=== PATIENT | male | born 1975 | race Caucasian/White ===

== ENCOUNTER 2025-03-05 01:12 | Day surgery (SDC) | payer OTHER, SELFPAY ==
[2025-02-10 14:04] VITALS: BMI 47.3
[2025-03-05 09:44] VITALS: BP 165/110; PULSE 75; RESP 18; TEMP 36.3; O2SAT 95
[2025-03-05] MEDS: LACTATED RINGERS 1,000 ML 150 ML IV CONT (09:52)
--- NOTE | 2025-03-05 10:03 | P.PNAN_ITS ---
Anes - Initial Pre Proc Eval Procedure: Operation Date: 03/05/25 11:00 Proposed Procedures p Screening Colonoscopy - Maximo Carter MD Date/Time: 03/05/25 10:03 Surgeon: Maximo Carter MD Pre Op Diagnosis: positive cologuard/screening Patient Data Age: 49 Gender: M Height: 1.78 m Weight: 156.4 kg Last Vital Signs Temp 97.3 F L 03/05/25 09:44 Pulse 75 03/05/25 09:44 Resp 18 03/05/25 09:44 BP 165/110 H 03/05/25 09:44 Pulse Ox 95 03/05/25 09:44 O2 Del Method Room Air 03/05/25 09:44 Allergies Allergy/AdvReac Type Severity Reaction Status Date / Time No Known Allergies Allergy Verified 03/05/25 09:41 Home Medications ?Medication ?Instructions ?Recorded ?Confirmed ?Type amlodipine 10 mg tablet 10 mg PO DAILY 02/10/2501/24 History irbesartan 300 1 tablet PO DAILY 02/10/25 1 04/12/24 History mg-hydrochlorothiazide 12.5 mg tablet Patient hx anesthesia problems: none Family hx anesthesia problems: none Results Review: All pre-operative results and documents have been reviewed as part of the pre- operative evaluation. [facility] Family History Family History (System 01/06/21 @ 11:29 by Aubrey Hernandez) Other Diabetes mellitus Family history of arthritis Family history of malignant neoplasm Hypertension Social History Social History (System 01/06/21 @ 11:29 by Aubrey Hernandez) Smoking status: Never smoker Alcohol intake: current Alcohol use details: weekends Substance use: never Substance use type: does not use Living arrangements: with family Spiritual care concerns: No Anes - Eval Final PreProcedure Day of Procedure 03/05/25 10:03 Patient weight: super morbidly obese Heart: regular rate and rhythm Lungs: clear to auscultation Airway: Mallampati scale class II Neurological: alert and oriented Last oral intake: >/= 8 hours ASA classification: III Emergent: no Anesthetic plan: proceed Anesthesia type and monitoring: general GIVS and standard monitoring Results Review: All pre-operative results and documents have been reviewed as part of the pre- operative evaluation. Informed Consent: The patient's anesthetic plan and its attendant risks and benefits were discussed with the patient/family/POA. Questions were solicited and answers provided to the satisfaction of the patient/family/POA.
--- NOTE | 2025-03-05 10:09 | PM.HPGS ---
History of Present Illness History of Present Illness Consent: Risks, benefits, and alternatives have been discussed and questions answered. Patient agrees to proceed with procedure. Chief complaint: positive cologuard/screening Narrative: Harinder Bartlett II is a 49 year old male here for first colonoscopy, + cologuard Review of Systems Review of Systems: All systems reviewed & are unremarkable except as noted in HPI and below PMFSH Past Medical History Medical History (Updated 03/05/25 @ 10:09 by Maximo Carter MD) Positive colorectal cancer screening using Cologuard test Family History Family History (System 01/06/21 @ 11:29 by Aubrey Hernandez) Other Diabetes mellitus Family history of arthritis Family history of malignant neoplasm Hypertension Social History Social History (System 01/06/21 @ 11:29 by Aubrey Hernandez) Smoking status: Never smoker Alcohol intake: current Alcohol use details: weekends Substance use: never Substance use type: does not use Living arrangements: with family Spiritual care concerns: No Meds Home Medications and Allergies Home Medications ?Medication ?Instructions ?Recorded ?Confirmed ?Type amlodipine 10 mg tablet 10 mg PO DAILY 02/10/25 02/10/25 History irbesartan 300 1 tablet PO DAILY 02/10/25 02/10/25 History mg-hydrochlorothiazide 12.5 mg tablet Allergies Allergy/AdvReac Type Severity Reaction Status Date / Time No Known Allergies Allergy Verified 03/05/25 09:41 Vital Signs Vital Signs - 24 hr 03/05/25 09:44 Temperature 97.3 F L Pulse Rate 75 Respiratory Rate 18 Blood Pressure 165/110 H Pulse Oximetry 95 Oxygen Delivery Room Air Exam Const: General: comfortable and no acute distress HENMT: Face/Nose/Sinus: Normal nares present Eyes: General: appearance normal, both eyes and all related structures Neck: Neck: no JVD Resp: Auscultation: clear to auscultation bilaterally Cardio: Rate: regular rate Rhythm: regular rhythm GI: Inspection: non-distended GI Palp: Yes Soft to palpation Skin: General skin exam: normal color Extrem: General: normal to inspection Psych: Mental Status: mental status grossly normal Assessment and Plan Assessment and plan (1) Positive colorectal cancer screening using Cologuard test: Code(s): R19.5 - Other fecal abnormalities Status: Acute Assessment and Plan: colonoscopy
--- NOTE | 2025-03-05 10:24 | S_PTH ---
PATIENT: Harinder Bartlett II LOC: [facility]#:[id number] AGE/SX: 49/M ROOM: RE03/05/[address]: Maximo Carter MD : 1975 BED: DIS: 03/05/2025 SPEC #: [id number] RECD: 03/05/25 11:57 STATUS: RAOUL REPrudencio #: [id number] DARNELL: 03/05/25 10:[address]: Maximo Carter DEPT: [facility] Surgical RECD BY: Danae Kidd ENTERED: 03/05/25 11:57 SP TYPE: Surgical OTHR DR: Eliud Bray MD Tissues: A - Colon Polypectomy B - Biopsy Procedures: Hematoxylin and Eosin Stain Gross and Microscopic Level 4
[2025-03-05 10:28] VITALS: BP 152/108; PULSE 93; RESP 21; O2SAT 97
[2025-03-05 10:38] VITALS: BP 144/108; PULSE 67; RESP 18; O2SAT 100
[2025-03-05 10:48] VITALS: BP 159/108; PULSE 69; RESP 13; O2SAT 100
== END 2025-03-05 11:05 | disposition home or self-care (01) ==
PROVIDERS: PCP Family Medicine; Referring Provider Family Medicine; Visit Provider Internal Medicine Gastroenterology
PROC: 0DJD8ZZ Inspection of Lower Intestinal Tract, Via Natural or Artificial Opening Endoscopic (ICD-10-PCS; CPT 45378; principal; 2025-03-05 11:00)
DX: R19.5 Other fecal abnormalities (principal); D12.4 Benign neoplasm of descending colon; K57.30 Diverticulosis of large intestine without perforation or abscess without bleeding; K64.8 Other hemorrhoids; D17.5 Benign lipomatous neoplasm of intra-abdominal organs
CPT/HCPCS: 45385; 45380; 88305; J2704; J7120